=== PATIENT | male | born 1995 | race Caucasian/White ===

== ENCOUNTER 2017-10-02 12:52 | Emergency (ER) | payer OTHER ==
[2017-10-02 13:01] VITALS: BP 147/98
[2017-10-02] MEDS ORDERED: OXYCODONE-ACETAMINOPHEN 5-325 MG TABLET PO ONE (13:55)
[2017-10-02] MEDS ORDERED: CLINDAMYCIN HCL 150 MG CAPSULE PO ONE (13:55)
[2017-10-02] MEDS ORDERED: IBUPROFEN 800 MG TABLET PO ONE (13:55)
--- NOTE | 2017-10-02 14:08 | ER Document Report ---
HPI - HPI Patient complains to provider of: Lip infection Onset: Other - 4 days Onset/Duration: Worse Quality of pain: Sharp Pain Level: 5 Context: Patient complains of having a pimple along the lower lip margin. Patient states that he attempted to squeeze this area several times. Patient complains of increased pain, swelling. Patient denies any fever. Patient denies any history of MRSA. Associated Symptoms: Other - Lower lip infection. denies: Fever Exacerbated by: Movement Relieved by: Denies Similar symptoms previously: No Recently seen / treated by doctor: No - ROS ROS below otherwise negative: Yes Systems Reviewed and Negative: Yes All other systems reviewed and negative - CONSTITUTIONAL Constitutional: DENIES: Fever, Chills - EENT Notes: Lower lip swelling - GASTROINTESTINAL Gastrointestinal: DENIES: Nausea - DERM Notes: Lower lip swelling, tenderness Past Medical History - General Information source: Patient - Social History Smoking Status: Former Smoker Chew tobacco use (# tins/day): No Frequency of alcohol use: Occasional Drug Abuse: None Occupation: None Lives with: Spouse/Significant other Family History: Reviewed & Not Pertinent Patient has suicidal ideation: No Patient has homicidal ideation: No Neurological Medical History: Reports: Hx Migraine Renal/ Medical History: Denies: Hx Peritoneal Dialysis Musculoskeltal Medical History: Reports Other - Chronic back pain Past Surgical History: Reports: Hx Oral Surgery - wisdom teeth, Hx Orthopedic Surgery - toe surgery Vertical Provider Document - CONSTITUTIONAL Agree With Documented VS: Yes Exam Limitations: No Limitations General Appearance: WD/WN, No Apparent Distress - HEENT HEENT: Atraumatic, Normocephalic Notes: Lower lip abscess, no sublingual or submental swelling - NECK Neck: Normal Inspection, Supple. negative: Lymphadenopathy-Left, Lymphadenopathy-Right - RESPIRATORY Respiratory: Breath Sounds Normal, No Respiratory Distress O2 Sat by Pulse Oximetry: 98 - CARDIOVASCULAR Cardiovascular: Regular Rate, Regular Rhythm, No Murmur - BACK Back: Normal Inspection - MUSCULOSKELETAL/EXTREMETIES Musculoskeletal/Extremeties: MAEW - NEURO Level of Consciousness: Awake, Alert, Appropriate Motor/Sensory: No Motor Deficit - DERM Integumentary: Warm, Dry, Abscess - Developing abscess to left lower lip margin , small pustular lesion noted Course - Vital Signs Vital signs: Temp Pulse Resp BP Pulse Ox 98.4 F 101 H 20 147/98 H 98 10/02/17 12:58 10/02/17 12:58 10/02/17 12:58 10/02/17 12:58 10/02/17 12:58 Procedures - Incision and Drainage Left Face Type: Simple I&D procedure: Other - alcohol Incision Method: Incision made with needle Amount/type of drainage: scant amount of purulent/bloody drainage Discharge - Discharge Clinical Impression: Lip abscess, Encounter for incision and drainage procedure Condition: Stable Disposition: HOME, SELF-CARE Instructions: Abscess ([facility]), Clindamycin ([facility]), Oral Narcotic Medication ([facility]) , Post Incision and Drainage Additional Instructions: Return immediately for any new or worsening symptoms Followup with your primary care provider, call tomorrow to make a followup appointment Prescriptions: Clindamycin HCl [Cleocin Hcl] 300 mg PO QID #28 capsule Oxycodone HCl/Acetaminophen [Percocet 5-325 mg Tablet] 1 tab PO ASDIR PRN #15 tablet PRN Reason: Referrals: [facility] [Provider Group] - Follow up tomorrow
== END 2017-10-02 14:39 | disposition home or self-care (01) ==
LOC: EDBD → ER 12:52
DX: K13.0 Diseases of lips (principal); Z87.891 Personal history of nicotine dependence
CPT/HCPCS: 87070; 87077; 87186; 87205; 99283

== ENCOUNTER 2018-04-22 04:02 | Emergency (ER) | payer OTHER ==
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
[2018-04-22 04:20] LABS: ABSOLUTE LYMPHOCYTES (AUTO) 0.9 10^3/uL (0.5-4.7); ABSOLUTE MONOCYTES (AUTO) 0.6 10^3/uL (0.1-1.4); ABSOLUTE NEUT (AUTO) 7.3 10^3/uL (1.7-8.2); BASOPHILS % (AUTO) 0.3 % (0-2); EOSINOPHILS % (AUTO) 0.1 % (0-6); HEMATOCRIT 42.3 % (37.9-51.0); HEMOGLOBIN 14.6 g/dL (13.5-17.0); LYMPHOCYTES % (AUTO) 9.8 % (13-45); MEAN CORPUSCULAR HEMOGLOBIN 30.5 pg (27.0-33.4); MEAN CORPUSCULAR HGB CONC 34.6 g/dL (32.0-36.0); MEAN CORPUSCULAR VOLUME 88 fl (80-97); MONOCYTES % (AUTO) 6.6 % (3-13); PLATELET COUNT 223 10^3/uL (150-450); RED BLOOD COUNT 4.79 10^6/uL (4.35-5.55); RED CELL DISTRIBUTION WIDTH 12.7 % (11.5-14.0); SEGMENTED NEUTROPHILS % (AUTO) 83.2 % (42-78); TOTAL CELLS COUNTED % (AUTO) 100 %; WHITE BLOOD COUNT 8.8 10^3/uL (4.0-10.5)
--- NOTE | 2018-04-22 04:32 | RADIOLOGY REPORT (SQ) ---
EXAM DESCRIPTION: CT LUMBAR SPINE WITHOUT IV CONTRAST COMPLETED DATE/TME: 04/22/2018 04:11 CLINICAL HISTORY: 23 years, Male, low back pain COMPARISON: None. TECHNIQUE: Axial CT images of the lumbar spine obtained without contrast. Sagittal and coronal reformats were performed. DLP 470 Images stored on PACS. All CT scanners at this facility use dose modulation, iterative reconstruction, and/or weight based dosing when appropriate to reduce radiation dose to as low as reasonably achievable (ALARA). [facility]: Dose Right [facility]: CareDose [facility]: Dose Right [facility]: Teradose 4D [facility]: youwho LIMITATIONS: None. FINDINGS: The alignment of the lumbar spine is satisfactory. There is no acute fracture or subluxation. The vertebral heights are maintained. There are chronic bilateral L5 pars defects without significant anterolisthesis. There is a mild diffuse disc bulge at L5-S1. The spinal canal and neural foramen appear widely patent. The visualized portions of the kidneys appear unremarkable. There is no hydronephrosis. The abdominal aorta is normal in caliber. IMPRESSION: No acute fracture or subluxation. Bilateral chronic L5 pars defects without significant anterolisthesis. TECHNICAL DOCUMENTATION: Quality ID # 436: Final reports with documentation of one or more dose reduction techniques (e.g., Automated exposure control, adjustment of the mA and/or kV according to patient size, use of iterative reconstruction technique) 2010 [employer]- All Rights Reserved
[2018-04-22 04:50] LABS: ALCOHOL 114 mg/dL (NONE DETECTED); ANION GAP 19 (5-19); BLOOD UREA NITROGEN 7 mg/dL (7-20); CALCIUM 9.4 mg/dL (8.4-10.2); CARBON DIOXIDE 15 mmol/L (22-30); CHLORIDE 106 mmol/L (98-107); GLUCOSE 121 mg/dL (75-110); POTASSIUM 3.8 mmol/L (3.6-5.0); SODIUM 139.5 mmol/L (137-145)
[2018-04-22] MEDS ORDERED: DEXAMETHASONE SOD PHOS INJ 10 MG/1 ML VIAL IV ONE (05:57)
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
[2018-04-22 13:14] VITALS: BP 146/87
== END 2018-04-22 13:05 | disposition home or self-care (01) ==
LOC: ER 04:02
DX: Z04.1 Encounter for examination and observation following transport accident (principal); F10.120 Alcohol abuse with intoxication, uncomplicated; R20.0 Anesthesia of skin; R53.1 Weakness; M47.9 Spondylosis, unspecified; M54.5 Low back pain; R20.2 Paresthesia of skin; Z87.828 Personal history of other (healed) physical injury and trauma
CPT/HCPCS: 99284; 96374; 36415; 80307; 85025; 80048; 72146; 72148; 70450; 72125; 72131; L0172; J1100

== ENCOUNTER 2019-06-22 10:46 | Emergency (ER) | payer OTHER ==
[2019-06-22 10:50] VITALS: BP 128/68
[2019-06-22] MEDS ORDERED: KETOROLAC TROMETHAMINE 60 MG/2 ML SDV IM ONE (10:56)
[2019-06-22] MEDS ORDERED: DEXAMETHASONE SOD PHOS INJ 10 MG/1 ML VIAL IM ONE (10:56)
[2019-06-22] MEDS ORDERED: DEXAMETHASONE SOD PHOS INJ 10 MG/1 ML VIAL IV ONE (10:57)
[2019-06-22] MEDS ORDERED: KETOROLAC TROMETHAMINE INJ/PF 30 MG/1 ML SDV IV ONE (10:57)
[2019-06-22] MEDS ORDERED: NORMAL SALINE 1000 ML 1,000 ML IV ONE ×2 (10:57→12:19)
--- NOTE | 2019-06-22 11:01 | ER Document Report ---
ED ENT - General Chief Complaint: Sore Throat Stated Complaint: SORE THROAT Time Seen by Provider: 06/22/19 10:52 Primary Care Provider: CROW,JAZMIN [Primary Care Provider] - Follow up as needed ERASTO CISSE MD [ACTIVE STAFF] - Follow up tomorrow Mode of Arrival: Ambulatory Information source: Patient Notes: 24-year-old male presented to ED for complaint of very sore throat with decreased voice. He states it is hard to open his mouth very wide due to the pain. He has been sick for 3 to 4 days. Patient states he has had tonsillitis multiple times in the past as well as ear problems. TRAVEL OUTSIDE OF THE [place] IN LAST 30 DAYS: No - HPI Patient complains to provider of: Ear problem, Nose problem, Throat problem Onset: Other Onset/Duration: Gradual - 3 days Quality of pain: Sharp, Stabbing Severity: Moderate Pain Level: 4 Context: Recent Illness Location of pain: Nose, Sinus, Throat Associated symptoms: Sore throat Similar symptoms previously: Yes Recently seen / treated by doctor: No - Related Data Allergies/Adverse Reactions: No Known Allergies Allergy (Verified 06/22/19 10:54) Past Medical History - General Information source: Parent - Social History Smoking Status: Never Smoker Frequency of alcohol use: Occasional Drug Abuse: None Lives with: Family Family History: Reviewed & Not Pertinent Patient has suicidal ideation: No Patient has homicidal ideation: No - Past Medical History Cardiac Medical History: Reports: None Pulmonary Medical History: Reports: None EENT Medical History: Reports: Ears Neurological Medical History: Reports: Hx Migraine Endocrine Medical History: Reports: None Renal/ Medical History: Reports: None Malignancy Medical History: Reports None GI Medical History: Reports: None Musculoskeletal Medical History: Reports None Skin Medical History: Reports None Psychiatric Medical History: Reports: Hx Attention Deficit Hyperactivity Disorder Traumatic Medical History: Reports: None Infectious Medical History: Reports: None Past Surgical History: Reports: Hx Oral Surgery - wisdom teeth, Hx Orthopedic Surgery - toe surgery - Immunizations Immunizations up to date: Yes Review of Systems - Review of Systems Constitutional: Fever, Recent illness EENT: Ear pain, Nose discharge, Sinus pressure, Sinus discharge, Throat pain, Mouth pain Cardiovascular: No symptoms reported Respiratory: No symptoms reported Gastrointestinal: No symptoms reported Genitourinary: No symptoms reported Male Genitourinary: No symptoms reported Musculoskeletal: No symptoms reported Skin: No symptoms reported Hematologic/Lymphatic: No symptoms reported Neurological/Psychological: No symptoms reported -: Yes All other systems reviewed and negative Physical Exam - Vital signs Vitals: Temp Pulse Resp BP Pulse Ox 102.7 F H 115 H 22 H 128/68 H 95 06/22/19 10:49 06/22/19 10:49 06/22/19 10:49 06/22/19 10:49 06/22/19 10:49 Interpretation: Normal - General General appearance: Appears well, Alert - HEENT Head: Normocephalic, Atraumatic Eyes: Normal Pupils: PERRL Ears: Normal External canal: Normal Tympanic membrane: Normal Sinus: Normal Nasal: Purulent discharge, Swelling Mouth/Lips: Normal Mucous membranes: Normal Pharynx: Erythema, Exudate, Post nasal drainage, Tonsillar hypertrophy Neck: Normal - Respiratory Respiratory status: No respiratory distress Chest status: Nontender Breath sounds: Normal Chest palpation: Normal - Cardiovascular Rhythm: Regular Heart sounds: Normal auscultation Murmur: No - Abdominal Inspection: Normal Distension: No distension Bowel sounds: Normal Tenderness: Nontender Organomegaly: No organomegaly - Back Back: Normal, Nontender - Extremities General upper extremity: Normal inspection, Nontender, Normal color, Normal ROM, Normal temperature General lower extremity: Normal inspection, Nontender, Normal color, Normal ROM, Normal temperature, Normal weight bearing. No: Juan Francisco's sign - Neurological Neuro grossly intact: Yes Cognition: Normal Orientation: AAOx4 [place] Coma Scale Eye Opening: Spontaneous [place] Coma Scale Verbal: Oriented Rafiq Coma Scale Motor: Obeys Commands [place] Coma Scale Total: 15 Speech: Normal Motor strength normal: LUE, RUE, LLE, RLE Sensory: Normal - Psychological Associated symptoms: Normal affect, Normal mood - Skin Skin Temperature: Warm Skin Moisture: Dry Skin Color: Normal Course - Re-evaluation Re-evalutation: 06/22/19 19:53 Patient was treated with Toradol Decadron and IV fluids. He was able to speak freely drink water before being discharged. Patient strep and mono were negative. Patient was instructed to follow-up with primary care and/or ENT for his sore throat and fever. - Vital Signs Vital signs: Temp Pulse Resp BP Pulse Ox 98.7 F 99 14 128/68 H 96 06/22/19 13:32 06/22/19 13:32 06/22/19 13:32 06/22/19 10:49 06/22/19 13:32 - Laboratory Result Diagrams: 06/22/19 11:38 06/22/19 11:38 Laboratory results interpreted by me: 06/22/19 11:38 WBC 16.7 H Lymph % (Auto) 5.8 L Absolute Neuts (auto) 13.9 H Absolute Monos (auto) 1.8 H Seg Neutrophils % 83.0 H Discharge - Discharge Clinical Impression: Viral tonsillitis URI (upper respiratory infection) Qualifiers: URI type: unspecified viral URI Qualified Code(s): J06.9 - Acute upper respiratory infection, unspecified Condition: Stable Disposition: HOME, SELF-CARE Additional Instructions: UPPER RESPIRATORY ILLNESS: You have a viral infection of the respiratory passages -- a "cold." This common infection causes nasal congestion, drainage, and often sore throat and cough. It is highly contagious. The disease usually lasts about 10 to 14 days. There is no "cure" for the viral infection -- it must run its course. If there is a complication, such as bacterial infection in the nose, sinuses, middle ear, or bronchial tubes, antibiotics may be required. The antibiotics won't affect the virus. Drink plenty of fluids. A humidifier may help. An expectorant medication or decongestant may make you more comfortable. Use acetaminophen or ibuprofen for fever or aches. See the doctor if fever persists over two days, if there is any significant worsening of your symptoms, or if you simply fail to improve as expected. Tonsillitis Tonsillitis is infection of the tonsils. Symptoms include sore throat, difficulty swallowing, fever and aches, and tender lumps under the angle of the jaw. Tonsillitis can be caused by bacteria or viruses. Viral tonsillitis must get better on its own. Antibiotics don't help. The doctor may test for mononucleosis if symptoms last many days. We can only treat the symptoms. Bacterial tonsillitis is treated with antibiotics. It may take a few days before improvement occurs. It's important to take all the antibiotics. Take acetaminophen or ibuprofen for pain and fever. Sip frequent clear liquids, or use popsicles or ice chips. Anesthetic sprays or lozenges may help a little (the pain of tonsillitis is deep, and isn't helped much by numbing the surface). Make sure the air in the room is not too dry. Avoid using decongestants or antihistamines. Tonsillectomy may be necessary if you have several episodes of tonsillitis within a couple of years, or if there are complications from your tonsillitis. It's usually not needed. Call the doctor if there is no improvement in two days, or if you have difficulty breathing, increasing throat pain, high fever, rash, or frequent vomiting. USE OF ACETAMINOPHEN (Tylenol): Acetaminophen may be taken for pain relief or fever control. It's much safer than aspirin, offering a wider range of "safe" dosages. It is safe during . Some brand names are Tylenol, Panadol, Datril, Anacin 3, Tempra, and Liquiprin. Acetaminophen can be repeated every four hours. The following are maximum recommended dosages: >89 pounds or adults 650 mg to 900 mg Acetaminophen can be repeated every four hours. Maximum dose not to exceed 4000 mg a day. Ibuprofen Ibuprofen is an excellent, safe drug for pain control. In addition, it has potent antiinflammatory effects which are beneficial, especially in the treatment of injuries, arthritis, or tendonitis. It's best to take ibuprofen with food. Persons with ulcer disease or allergy to aspirin should notify their physician of this before taking ibuprofen. Take the medication exactly as prescribed. Don't take additional doses unless instructed to do so by your doctor. If you develop wheezing, shortness of breath, hives, faintness, stomach pain, vomiting, or dark black stools, return for re-evaluation at once. Salt and soda solution 1 quart of water 1 tablespoon of salt 1 teaspoon of baking soda Mixed 3 ingredients together and boil for 1 minute Placed in a covered quart jar Use 1/2 ounce of cold solution to gargle 3 times a day Chloraseptic spray for your sore throat FOLLOW-UP CARE: If you have been referred to a physician for follow-up care, call the physicians office for an appointment as you were instructed or within the next two days. If you experience worsening or a significant change in your symptoms, notify the physician immediately or return to the Emergency Department at any t dimitris for re-evaluation. Forms: Elevated Blood Pressure, Return to Work [facility]errals: [facility] [[facility]] - Follow up as needed ERASTO CISSE MD [ACTIVE STAFF] - Follow up tomorrow
[2019-06-22 11:54] LABS: ABSOLUTE MONOCYTES (AUTO) 1.8 10^3/uL (0.1-1.4); ABSOLUTE NEUT (AUTO) 13.9 10^3/uL (1.7-8.2); BASOPHILS % (AUTO) 0.1 % (0-2); EOSINOPHILS % (AUTO) 0.1 % (0-6); HEMATOCRIT 40.5 % (37.9-51.0); HEMOGLOBIN 14.1 g/dL (13.5-17.0); LYMPHOCYTES % (AUTO) 5.8 % (13-45); MEAN CORPUSCULAR HEMOGLOBIN 30.8 pg (27.0-33.4); MEAN CORPUSCULAR HGB CONC 34.7 g/dL (32.0-36.0); MEAN CORPUSCULAR VOLUME 89 fl (80-97); PLATELET COUNT 171 10^3/uL (150-450); RED BLOOD COUNT 4.57 10^6/uL (4.35-5.55); RED CELL DISTRIBUTION WIDTH 12.5 % (11.5-14.0); TOTAL CELLS COUNTED % (AUTO) 100 %; WHITE BLOOD COUNT 16.7 10^3/uL (4.0-10.5)
[2019-06-22 12:15] LABS: ALBUMIN 4.4 g/dL (3.5-5.0); ALKALINE PHOSPHATASE 70 U/L (38-126); ANION GAP 11 (5-19); ASPARTATE AMINO TRANSFERASE 17 U/L (17-59); BILIRUBIN,DIRECT 0.1 mg/dL (0.0-0.4); BILIRUBIN,TOTAL 1.1 mg/dL (0.2-1.3); BLOOD UREA NITROGEN 11 mg/dL (7-20); CALCIUM 9.3 mg/dL (8.4-10.2); CARBON DIOXIDE 27 mmol/L (22-30); CHLORIDE 100 mmol/L (98-107); GLUCOSE 102 mg/dL (75-110); POTASSIUM 4.2 mmol/L (3.6-5.0); TOTAL PROTEIN 7.4 g/dL (6.3-8.2)
== END 2019-06-22 13:32 | disposition home or self-care (01) ==
LOC: ER 10:46
DX: J03.80 Acute tonsillitis due to other specified organisms (principal); B97.89 Other viral agents as the cause of diseases classified elsewhere; H92.09 Otalgia, unspecified ear; R09.89 Other specified symptoms and signs involving the circulatory and respiratory systems; K13.79 Other lesions of oral mucosa
CPT/HCPCS: 99283; 96372; 96360; 36415; 87070; 87880; 85025; 86308; 80053; J1885; J7030; J1100

== ENCOUNTER 2019-06-27 11:32 | Observation (INO) | payer OTHER ==
[2019-06-27] MEDS ORDERED: KETOROLAC TROMETHAMINE INJ/PF 30 MG/1 ML SDV IV ONE (12:13)
[2019-06-27] MEDS ORDERED: DEXAMETHASONE SOD PHOS INJ 10 MG/1 ML VIAL IV ONE ×2 (12:13→16:42)
[2019-06-27] MEDS ORDERED: NORMAL SALINE 1000 ML 1,000 ML IV ONE (12:14)
[2019-06-27 13:13] LABS: ALKALINE PHOSPHATASE 89 U/L (38-126); ANION GAP 10 (5-19); ASPARTATE AMINO TRANSFERASE 14 U/L (17-59); BILIRUBIN,DIRECT 0.3 mg/dL (0.0-0.4); BILIRUBIN,TOTAL 1.2 mg/dL (0.2-1.3); BLOOD UREA NITROGEN 12 mg/dL (7-20); CALCIUM 9.4 mg/dL (8.4-10.2); CARBON DIOXIDE 30 mmol/L (22-30); CHLORIDE 101 mmol/L (98-107); GLUCOSE 106 mg/dL (75-110); POTASSIUM 4.1 mmol/L (3.6-5.0); TOTAL PROTEIN 7.2 g/dL (6.3-8.2)
[2019-06-27 13:25] LABS: HEMOGLOBIN 13.5 g/dL (13.5-17.0); MEAN CORPUSCULAR HEMOGLOBIN 30.5 pg (27.0-33.4); MEAN CORPUSCULAR HGB CONC 34.5 g/dL (32.0-36.0); MEAN CORPUSCULAR VOLUME 89 fl (80-97); PLATELET COUNT 256 10^3/uL (150-450); RED BLOOD COUNT 4.41 10^6/uL (4.35-5.55); RED CELL DISTRIBUTION WIDTH 12.7 % (11.5-14.0); WHITE BLOOD COUNT 20.9 10^3/uL (4.0-10.5)
[2019-06-27 13:49] LABS: ABSOLUTE LYMPHOCYTES# (MANUAL) 2.3 10^3/uL (0.5-4.7); ABSOLUTE MONOCYTES # (MANUAL) 1.9 10^3/uL (0.1-1.4); BAND NEUTROPHILS % (MANUAL) 1 % (3-5); BASOPHILS % (MANUAL) 0 % (0-2); EOSINOPHILS % (MANUAL) 0 % (0-6); LYMPHOCYTES % (MANUAL) 11 % (13-45); MONOCYTES % (MANUAL) 9 % (3-13); SEGMENTED NEUTROPHILS % (MAN) 79 % (42-78); TOTAL CELLS COUNTED 100
[2019-06-27 13:51] LABS: PLATELET COMMENT ADEQUATE; RBC MORPHOLOGY COMMENT NORMO-CYTIC/CHROMIC
--- NOTE | 2019-06-27 14:50 | RADIOLOGY REPORT (SQ) ---
EXAM DESCRIPTION: CT SOFT TISSUE NECK WITH COMPLETED DATE/TIME: 06/27/2019 2:17 pm REASON FOR STUDY: rule out peritonsillar abscess COMPARISON: None. TECHNIQUE: Post IV contrasted scanning from skull base through lung apices with review of bone, soft tissue and lung windows. Reconstructed coronal and sagittal MPR images reviewed. All images stored on PACS. All CT scanners at this facility use dose modulation, iterative reconstruction, and/or weight based d osing when appropriate to reduce radiation dose to as low as reasonably achievable (ALARA). [facility]: Dose Right [facility]: CareDose [facility]: Dose Right [facility]: Teradose 4D [facility]: Panvidea CONTRAST TYPE AND DOSE: 75 ccmL Omnipaque 350 RENAL FUNCTION: None required. The patient is less than 50 years old. RADIATION DOSE: CT Rad equipment meets quality standard of care and radiation dose reduction techniq ues were employed. CTDIvol: 14.1 mGy. DLP: 480 mGy-cm. mGy. LIMITATIONS: Streak artifact from the dental amalgam limits evaluation at the level of the mandible. FINDINGS: SKULL BASE: Intact. MAJOR SALIVARY GLANDS: No solid or cystic masses. No inflammatory changes. LYMPHADENOPATHY: There is a bilateral enlarged cervical level 2 lymph nodes. For reference there is a left level 2 node measuring 17 mm in short axis (series 3, image 46). MUCOSAL MASSES OR ASYMMETRY: There is asymmetric enlargement and soft tissue fullness within the left palatini tonsil. There is a 19 x 14 mm intermediate-attenuation ill-defined collection within the l eft palatini tonsil (series 3, image 36). No well-formed peritonsillar abscess. There is mass effec t with narrowing of the posterior nasopharyngeal airway. LARYNX/CORDS: No abnormal findings. VASCULAR STRUCTURES: The major vessels are patent. LUNG APICES: Clear. BONES: Intact. THYROID: Normal size. No masses. PARANASAL SINUSES: Clear. OTHER: No other significant finding. IMPRESSION: 1. Asymmetric enlargement of the left palatini tonsil with a 19 x 14 mm intermediate-at tenuation ill-defined collection suggestive of developing tonsillar abscess. There is associated sig nificant narrowing of the nasopharyngeal airway. 2. Cervical lymphadenopathy, likely reactive. Findings discussed with Kris at 1444 hours on 06/27/2019 TECHNICAL DOCUMENTATION: JOB ID: [id number] RS [id number]: Final reports with documentation of one or more dose reduction techniques (e.g., Automate d exposure control, adjustment of the mA and/or kV according to patient size, use of iterative recons truction technique) 2010 [employer]- All Rights Reserved Reading location - IP/workstation name: [email or web address]
[2019-06-27] MEDS ORDERED: PIPERACILLIN/TAZOBACTAM 3.375 GM VIAL IV ONE (14:54)
--- NOTE | 2019-06-27 15:07 | ER Document Report ---
ED Medical Screen (RME) - General Chief Complaint: Sore Throat Stated Complaint: WEAKNESS Time Seen by Provider: 06/27/19 12:07 Primary Care Provider: JAZMIN MARIA [Primary Care Provider] - Follow up as needed Notes: Patient is a 24-year-old male who presents emergency department with a chief complaint of fever and sore throat. Patient states he was seen here on Sunday and diagnosed with a viral tonsillitis. Patient reports he was given medications while he was here in the emergency department and did feel better a few days afterwards. Patient reports a temp of 102 at home and continued sore throat. Patient reports it feels like the sore throat is worse on the right. TRAVEL OUTSIDE OF THE [place] IN LAST 30 DAYS: No - Related Data Allergies/Adverse Reactions: adhesive tape Allergy (Verified 06/27/19 13:26) Past Medical History - Social History Chew tobacco use (# tins/day): No Frequency of alcohol use: Social Drug Abuse: None Neurological Medical History: Reports: Hx Migraine Renal/ Medical History: Denies: Hx Peritoneal Dialysis Psychiatric Medical History: Reports: Hx Attention Deficit Hyperactivity Disorder Past Surgical History: Reports: Hx Oral Surgery - wisdom teeth, Hx Orthopedic Surgery - toe surgery - Immunizations Immunizations up to date: Yes Physical Exam - Vital signs Vitals: Temp Pulse BP Pulse Ox 101.1 F H 114 H 138/82 H 98 06/27/19 11:39 06/27/19 11:39 06/27/19 11:39 06/27/19 11:39 - HEENT Notes: Patient does have palpable bilateral cervical lymph nodes. Patient does have +4 tonsillar enlargement although it does appear to be slightly worse on the left, uvula is midline. Patient has a hot potato voice. No drooling. Course - Re-evaluation Re-evalutation: 06/27/19 15:05 We will obtain basic labs, repeat strep and mono. Will give IV fluids, stero ids, anti-inflammatories to help with the pain and swelling. We will continue to monitor. Order a CT to rule out peritonsillar abscess. I have greeted and performed a rapid initial assessment of this patient. A comprehensive ED assessment and evaluation of the patient, analysis of test results and completion of the medical decision making process will be conducted by additional ED providers. Radiology called to report a possible developing peritonsillar abscess on the left side. I did discuss this with Dr. Fritz, will initiate IV Zosyn. I did reevaluate the patient she was resting comfortably. Patient reports his symptoms are slightly better. Patient is not tachycardic or febrile at this time. Patient to be evaluated by a provider in the back. - Vital Signs Vital signs: Temp Pulse Resp BP Pulse Ox 98.8 F 93 18 115/67 97 06/27/19 14:57 06/27/19 14:57 06/27/19 14:57 06/27/19 14:57 06/27/19 14:57 - Laboratory Result Diagrams: 06/27/19 13:02 06/27/19 12:11 Laboratory results interpreted by me: 06/27/19 06/27/19 12:11 13:02 WBC 20.9 H Seg Neuts % (Manual) 79 H Band Neutrophils % 1 L Lymphocytes % (Manual) 11 L Abs Neuts (Manual) 16.7 H Abs Monocytes (Manual) 1.9 H AST 14 L Doctor's Discharge - Discharge [facility]errals: [facility] [[facility]] - Follow up as needed
[2019-06-27] MEDS ORDERED: CLINDAMYCIN 600 MG/D5W RTU 600 MG/50 ML RTUPB IV ONE (15:18)
--- NOTE | 2019-06-27 15:34 | ER Document Report ---
ED General - General Chief Complaint: Sore Throat Stated Complaint: WEAKNESS Time Seen by Provider: 06/27/19 12:07 Primary Care Provider: JAZMIN MARIA [Primary Care Provider] - Follow up as needed TRAVEL OUTSIDE OF THE [place] IN LAST 30 DAYS: No - HPI Notes: Patient is a 24-year-old male no significant past medical history who presents complaining of worsening sore throat over the past 5 days, trouble swallowing, trouble speaking, fevers. Patient was diagnosed with a viral tonsillitis 5 days ago, but has had worsening symptoms since then. Patient states that it is worse on the left than the right. He does have some trouble swallowing, but is not drooling. He is still able to urinate normally and have normal bowel movements. No other concerns or complaints. Denies any headache, neck pain, URI, chest pain, palpitations, syncope, cough, shortness of breath, wheeze, dyspnea, abdominal pain, nausea/vomiting/diarrhea, urinary retention, dysuria, hematuria, or rash. - Related Data Allergies/Adverse Reactions: adhesive tape Allergy (Verified 06/27/19 13:26) Past Medical History - Social History Smoking Status: Never Smoker Chew tobacco use (# tins/day): No Frequency of alcohol use: Social Drug Abuse: None Family History: Reviewed & Not Pertinent Patient has suicidal ideation: No Patient has homicidal ideation: No Neurological Medical History: Reports: Hx Migraine Renal/ Medical History: Denies: Hx Peritoneal Dialysis Psychiatric Medical History: Reports: Hx Attention Deficit Hyperactivity Disorder Past Surgical History: Reports: Hx Oral Surgery - wisdom teeth, Hx Orthopedic Surgery - toe surgery - Immunizations Immunizations up to date: Yes Review of Systems - Review of Systems -: Yes All other systems reviewed and negative Physical Exam - Vital signs Vitals: Temp Pulse BP Pulse Ox 101.1 F H 114 H 138/82 H 98 06/27/19 11:39 06/27/19 11:39 06/27/19 11:39 06/27/19 11:39 - Notes Notes: PHYSICAL EXAMINATION: GENERAL: Well-appearing, well-nourished and in no acute resp distress. HEAD: Atraumatic, normocephalic. EYES: Pupils equal round and reactive to light, extraocular movements intact, sclera anicteric, conjunctiva are normal. ENT: Nares patent and with clear discharge. oropharynx mild erythema without exudates. 4+ tonsilar hypertrophy Left side with erythema present. + left palatine shift. Uvula deviation noted to the right. No tongue protrusion. Moist mucous membranes. + significant hoarseness w/o active drooling. Pt cannot really even say his name at this time. + moderate airway compromise noted due to swelling. NECK: Normal range of motion, supple without lymphadenopathy. No rigidity/meningismus. LUNGS: Breath sounds clear to auscultation bilaterally and equal. No wheezes rales or rhonchi. No retractions HEART: Regular rate and rhythm without murmurs, rubs, gallops. ABDOMEN: Soft, nontender, nondistended abdomen. No guarding, no rebound. Normal bowel sounds present. No CVA tenderness bilaterally. No hepatos plenomegaly. NEUROLOGICAL: Normal speech, normal gait. PSYCH: Normal mood, normal affect. SKIN: Warm, Dry, normal turgor, no rashes or lesions noted. Course - Re-evaluation Re-evalutation: 06/27/19 15:37 Patient is a 24-year-old male who presents with fever, leukocytosis of 20,000, left peritonsillar abscess with significant nasopharyngeal airway narrowing which was also noted on exam. Pt given decadron IV as well as toradol and fluids. Fever has improved. Clindamycin ordered. Neg mono/strep. I did notify Dr. Fritz and updated him on case as there is airway compromise present and if any deterioration, may need intubated. I left a voice mail for transfer to [facility]. [facility] do not [facility] these cases. Pt will be placed on monitor. He has IV access. 06/27/19 15:59 Left another voice mail for [place]. We will try [facility]. 06/27/19 16:03 Spoke with transfer center who will have Dr. Brown ENT, call me back. 06/27/19 16:09 [facility] called me back and want to wait for [facility] response then call them back if we need. 06/27/19 16:37 I spoke in depth with KAIA Eldridge, from [facility]. He looked at the CT imaging and does not believe there to be an abscess nor anything drainable. He believes that it is possibly a phlegmon. He states that this would be a medical admission and may not even need ENT if given decadron/antibiotics IV for the next 1-2 days. He does recommend continuing with clindamycin IV/PO transition or even Unasyn/Augmentin transition. He does recommend a loading dose of Decadron 24mg IV (we will add 14 to the 10 already given IV) and then 8mg every 6 hours thereafter. He does not note any significant airway compromise to the main airway, just the tonsilar area. Pt is otherwise without stridor or any distress with respirations. I did speak with our hospitalist, BENJAMIN Tipton, who will accept admission at our facility at this time. Pt is in agreement with this plan and is aware that with worsening symptoms, he may need to be transferred. - Vital Signs Vital signs: Temp Pulse Resp BP Pulse Ox 98.6 F 93 18 115/67 94 06/27/19 15:20 06/27/19 14:57 06/27/19 14:57 06/27/19 14:57 06/27/19 16:21 - Laboratory Result Diagrams: 06/27/19 13:02 06/27/19 12:11 Laboratory results interpreted by me: 06/27/19 06/27/19 12:11 13:02 WBC 20.9 H Seg Neuts % (Manual) 79 H Band Neutrophils % 1 L Lymphocytes % (Manual) 11 L Abs Neuts (Manual) 16.7 H Abs Monocytes (Manual) 1.9 H AST 14 L Discharge - Discharge Clinical Impression: Cellulitis of tonsil Fever Qualifiers: Fever type: due to other condition Qualified Code(s): R50.81 - Fever presenting with conditions classified elsewhere Condition: Stable Disposition: ADMITTED INPATIENT Admitting Provider: Asael (Hospitalist) - for BENJAMIN Tipton Unit Admitted: Medical Floor [facility]: [facility] [[facility] - Follow up as needed
[2019-06-27] MEDS ORDERED: MAG HYDROX/AL HYDROX/SIMETH SUSP 30 ML UDCUP PO PRN (17:35)
[2019-06-27] MEDS ORDERED: ONDANSETRON HCL INJ/PF 4 MG/2 ML SDV IV PRN (17:35)
[2019-06-27] MEDS ORDERED: ALBUTEROL SULFATE 0.083% NEB 2.5 MG/3 ML AMPUL NEB PRN (17:35)
[2019-06-27] MEDS ORDERED: PROMETHAZINE HCL INJ 25 MG/1 ML VIAL IV PRN (17:35)
[2019-06-27] MEDS ORDERED: KETOROLAC TROMETHAMINE INJ/PF 30 MG/1 ML SDV IV PRN (17:48)
[2019-06-27] MEDS ORDERED: ACETAMINOPHEN SOLN 325 MG/10.15 ML UDCUP PO PRN (17:48)
--- NOTE | 2019-06-27 17:48 | PDOC H&P ---
History of Present Illness Admission Date/PCP: 06/27/19 17:15 [facility] History of Present Illness: BRITTA SINGER JR is a 24 year old male without significant past medical history who presented to the emergency department today with a complaint of 5 days of gradually worsening sore throat, trouble swallowing, speaking, and fevers. Patient was seen in the emergency department 5 days ago and diagnosed with viral tonsillitis; discharged home with supportive therapy recommended. He returns today with no improvement in his symptoms. He is now unable to swallow thin liquids as it " comes out my nose," but is able to tolerate thickened liquids. Evaluation in the emergency department revealed fever (101.1), tachycardia (heart rate 114), leukocytosis (WBCs 20.9), normal chemistry, negative mono and rapid strep. Soft tissue neck CT demonstrated asymmetric enlargement of the left Palatino tonsil with a 19 x 14 mm tonsillar abscess with associated narrowing of the nasopharynx. He also has likely reactive cervical lymphadenopathy. The ED provider spoke with Dr. Brown, [facility], who recommended medical admission with IV antibiotics and Decadron for the next 24 to 48 hours. He recommended clindamycin IV to p.o. transition. He does not feel that there is any surgical or ENT needed at this time. The patient has been provided IV fluids, decadron, and IV clindamycin. He is referred to the hospitalist services for admission and management of the above stated complaints. Past Medical History Cardiac Medical History: Reports: None Pulmonary Medical History: Reports: None EENT Medical History: Reports: None Neurological Medical History: Reports: Migraine Endocrine Medical History: Reports: None Renal/ Medical History: Reports: None Malignancy Medical History: Reports: None GI Medical History: Reports: None Musculoskeltal Medical History: Reports: None Psychiatric Medical History: Reports: Attention Deficit Hyperactivity Disorder Traumatic Medical History: Reports: None Hematology: Reports: None Infectious Medical History: Reports: None Past Surgical History Past Surgical History: Reports: Orthopedic Surgery - toe surgery Social History Information Source: Patient, Relative Lives with: Family Smoking Status: Never Smoker Electronic Cigarette use?: No Frequency of Alcohol Use: Occasional Hx Recreational Drug Use: No Drugs: None Hx Prescription Drug Abuse: No - Advance Directive Resuscitation Status: Full Code Family History Family History: Reviewed & Not Pertinent Parental Family History Reviewed: Yes Children Family History Reviewed: NA Sibling(s) Family History Reviewed.: Yes Medication/Allergy Allergies/Adverse Reactions: adhesive tape Allergy (Verified 06/27/19 13:26) Review of Systems Constitutional: PRESENT: anorexia, fever(s). ABSENT: chills, headache(s), weight gain, weight loss Eyes: ABSENT: visual disturbances Ears: PRESENT: other - left ear pain. ABSENT: hearing changes Nose, Mouth, and Throat: PRESENT: as per HPI, sore throat Cardiovascular: ABSENT: chest pain, dyspnea on exertion, edema, orthropnea, palpitations Respiratory: ABSENT: cough, hemoptysis Gastrointestinal: ABSENT: abdominal pain, constipation, diarrhea, hematemesis, hematochezia, nausea, vomiting Genitourinary: ABSENT: dysuria, hematuria Musculoskeletal: ABSENT: joint swelling Integumentary: ABSENT: rash, wounds Neurological: ABSENT: abnormal gait, abnormal speech, confusion, dizziness, focal weakness, syncope Psychiatric: ABSENT: anxiety, depression, homidical ideation, suicidal ideation Endocrine: ABSENT: cold intolerance, heat intolerance, polydipsia, polyuria Hematologic/Lymphatic: ABSENT: easy bleeding, easy bruising Physical Exam Vital Signs: Temp Pulse Resp BP Pulse Ox 98.7 F 91 17 126/84 H 94 06/27/19 17:11 06/27/19 17:11 06/27/19 17:11 06/27/19 17:11 06/27/19 17:11 Intake & Output 06/26/19 06/27/19 06/28/19 06:59 06:59 06:59 Intake Total 1050 Balance 1050 Weight 75.1 kg General appearance: PRESENT: no acute distress, cooperative, disheveled, well- developed, well-nourished Head exam: PRESENT: atraumatic, normocephalic Eye exam: PRESENT: conjunctiva pink, EOMI, PERRLA. ABSENT: scleral icterus Ear exam: PRESENT: normal external ear exam Mouth exam: PRESENT: moist, tongue midline, other - left facial swelling; Left cervical lymphadenopathy Neck exam: PRESENT: full ROM, lymphadenopathy. ABSENT: carotid bruit, JVD, thyromegaly, tracheal deviation Respiratory exam: PRESENT: clear to auscultation yessi, symmetrical, unlabored. ABSENT: rales, rhonchi, wheezes Cardiovascular exam: PRESENT: RRR, +S1, +S2. ABSENT: diastolic murmur, rubs, systolic murmur Pulses: PRESENT: normal dorsalis pedis pul Vascular exam: PRESENT: normal capillary refill GI/Abdominal exam: PRESENT: normal bowel sounds, soft. ABSENT: distended, guarding, mass, organolmegaly, rebound, tenderness Rectal exam: PRESENT: deferred Extremities exam: PRESENT: full ROM. ABSENT: calf tenderness, clubbing, pedal edema Neurological exam: PRESENT: alert, awake, oriented to person, oriented to place, oriented to time, oriented to situation, CN II-XII grossly intact. ABSENT: motor sensory deficit Psychiatric exam: PRESENT: appropriate affect, normal mood. ABSENT: homicidal ideation, suicidal ideation Skin exam: PRESENT: dry, intact, warm. ABSENT: cyanosis, rash Results Laboratory Results: 06/27/19 13:02 06/27/19 12:11 06/27/19 06/27/19 12:11 13:02 WBC 20.9 H RBC 4.41 Hgb 13.5 Hct 39.0 MCV 89 MCH 30.5 MCHC 34.5 RDW 12.7 Plt Count 256 Seg Neutrophils % Not Reportable Sodium 141.2 Potassium 4.1 Chloride 101 Carbon Dioxide 30 Anion Gap 10 BUN 12 Creatinine 0.77 Est GFR ( Amer) > 60 Glucose 106 Calcium 9.4 Total Bilirubin 1.2 AST 14 L Alkaline Phosphatase 89 Total Protein 7.2 Albumin 4.0 Impressions: Soft Tissue Neck CT 06/27/19 12:14 IMPRESSION: 1. Asymmetric enlargement of the left palatini tonsil with a 19 x 14 mm intermediate-attenuation ill-defined collection suggestive of developing tonsillar abscess. There is associated significant narrowing of the nasopharyngeal airway. 2. Cervical lymphadenopathy, likely reactive. Findings discussed with Kris at 1444 hours on 06/27/2019 Assessment and Plan - Diagnosis (1) Cellulitis of tonsil Is this a current diagnosis for this admission?: Yes Plan: Admit to the medical floor. Continue IV clindamycin. Decadron 8 mg every 8 hours. Continue IV fluids. Follow-up CBC. Blood cultures pending. Outpatient ENT follow-up. (2) Leukocytosis Is this a current diagnosis for this admission?: Yes Plan: Secondary #1. Cultures and antibiotics as above. (3) Dysphagia Qualifiers: Dysphagia type: oral phase Qualified Code(s): R13.11 - Dysphagia, oral phase Is this a current diagnosis for this admission?: Yes Plan: Secondary to 1. Full liquid, nectar thickened liquids diet. Aspiration precautions. Remaining management as above. (4) Fever Qualifiers: Fever type: due to other condition Qualified Code(s): R50.81 - Fever presenting with conditions classified elsewhere Is this a current diagnosis for this admission?: Yes Plan: Secondary to #1. Antipyretics as needed. - Time Time Spent with patient: 35 or more minutes Medications reviewed and adjusted accordingly: Yes Anticipated discharge: Home Within: within 48 hours - Inpatient Certification Based on my medical assessment, after consideration of the patient's comorbidities, presenting symptoms, or acuity I expect that the services needed warrant INPATIENT care.: Yes I certify that my determination is in accordance with my understanding of Medicare's requirements for reasonable and necessary INPATIENT services [42 CFR 412.3e].: Yes Medical Necessity: Failure to Improve With Outpatient Therapy, Need For IV Fluids, Need for IV Antibiotics
[2019-06-27] MEDS ORDERED: DEXAMETHASONE SOD PHOS INJ 10 MG/1 ML VIAL IV SCH (18:00)
[2019-06-27] MEDS: NORMAL SALINE 1000 ML 1,000 ML IV PRN (22:22)
[2019-06-27] MEDS: FAMOTIDINE INJ/PF 20 MG/2 ML SDV IV SCH (22:23)
[2019-06-27] MEDS: CLINDAMYCIN 600 MG/D5W RTU 600 MG/50 ML RTUPB IV SCH (22:23)
[2019-06-27] MEDS: HEPARIN SOD (PORCINE) 5,000 UNIT/ML 1 ML VIAL SUBCUT SCH (22:23)
[2019-06-27] MEDS ORDERED: INFLUENZA QUAD (6MOS+) 2019-20 VAC 0.5 ML SYR IM ONE (22:58)
[2019-06-28] MEDS: CLINDAMYCIN 600 MG/D5W RTU 600 MG/50 ML RTUPB IV SCH ×2 (05:22→13:55)
[2019-06-28] MEDS: DEXAMETHASONE SOD PHOS INJ 10 MG/1 ML VIAL IV SCH ×2 (05:22→11:43)
[2019-06-28] MEDS: HEPARIN SOD (PORCINE) 5,000 UNIT/ML 1 ML VIAL SUBCUT SCH ×2 (05:22→13:54)
[2019-06-28 05:34] LABS: HEMATOCRIT 35.5 % (37.9-51.0); HEMOGLOBIN 12.5 g/dL (13.5-17.0); MEAN CORPUSCULAR HEMOGLOBIN 30.8 pg (27.0-33.4); MEAN CORPUSCULAR HGB CONC 35.2 g/dL (32.0-36.0); MEAN CORPUSCULAR VOLUME 87 fl (80-97); PLATELET COUNT 246 10^3/uL (150-450); RED BLOOD COUNT 4.06 10^6/uL (4.35-5.55); RED CELL DISTRIBUTION WIDTH 12.5 % (11.5-14.0); WHITE BLOOD COUNT 16.5 10^3/uL (4.0-10.5)
[2019-06-28 06:10] LABS: ANION GAP 11 (5-19); BLOOD UREA NITROGEN 15 mg/dL (7-20); CALCIUM 9.1 mg/dL (8.4-10.2); CARBON DIOXIDE 26 mmol/L (22-30); CHLORIDE 104 mmol/L (98-107); GLUCOSE 145 mg/dL (75-110); POTASSIUM 4.1 mmol/L (3.6-5.0)
[2019-06-28] MEDS: NORMAL SALINE 1000 ML 1,000 ML IV PRN (09:09)
[2019-06-28] MEDS: FAMOTIDINE INJ/PF 20 MG/2 ML SDV IV SCH (09:09)
[2019-06-28] MEDS ORDERED: ACETAMINOPHEN 325 MG TABLET PO PRN (09:38)
[2019-06-28] MEDS ORDERED: DOCUSATE SODIUM 100 MG/10 ML UDC PO SCH (10:00)
[2019-06-28 15:27] VITALS: BP 115/80
--- NOTE | 2019-06-28 16:00 | PDOC DISCHARGE SUMMARY ---
Impression - Admit/DC Date/PCP Admission Date/Primary Care Provider: 06/27/19 17:15 [place] [facility] Discharge Date: 06/28/19 - Discharge Diagnosis (1) Cellulitis of tonsil Is this a current diagnosis for this admission?: Yes (2) Leukocytosis Is this a current diagnosis for this admission?: Yes (3) Dysphagia Is this a current diagnosis for this admission?: Yes (4) Fever Is this a current diagnosis for this admission?: Yes - Additional Information Resuscitation Status: Full Code Discharge Diet: Regular Discharge Activity: Activity As Tolerated, Balance Activity w/Rest Referrals: [facility] [Primary Care Provider] - 07/02/19 2:00 pm Prescriptions: Clindamycin HCl [Cleocin 300 mg Capsule] 300 mg PO Q6 #40 capsule Prednisone [Deltasone 20 mg Tablet] 20 mg PO ASDIR PRN 20 Days #30 tablet PRN Reason: Hydrocodone/Acetaminophen [[place] 5-325 Tablet] 1 each PO Q4HP PRN #12 tablet PRN Reason: Ondansetron [Zofran Odt 4 mg Tablet] 1 - 2 tab PO Q4HP PRN #20 tab.rapdis PRN Reason: For Nausea/Vomiting Home Medications: Acetaminophen [Tylenol 325 mg Tablet] 650 mg PO Q4HP PRN tablet 06/28/19 Clindamycin HCl [Cleocin 300 mg Capsule] 300 mg PO Q6 #40 capsule 06/28/19 Hydrocodone/Acetaminophen [[place] 5-325 Tablet] 1 each PO Q4HP PRN #12 tablet 06/28/19 Ondansetron [Zofran Odt 4 mg Tablet] 1 - 2 tab PO Q4HP PRN #20 tab.rapdis 06/28/19 Prednisone [Deltasone 20 mg Tablet] 20 mg PO ASDIR PRN 20 Days #30 tablet 06/28/19 History of Present Illiness History of Present Illness: BRITTA SINGER JR is a 24 year old male without significant past medical history who presented to the emergency department today with a complaint of 5 days of gradually worsening sore throat, trouble swallowing, speaking, and fevers. Patient was seen in the emergency department 5 days ago and diagnosed with viral tonsillitis; discharged home with supportive therapy recommended. He returns t maris with no improvement in his symptoms. He is now unable to swallow thin liquids as it " comes out my nose," but is able to tolerate thickened liquids. Evaluation in the emergency department revealed fever (101.1), tachycardia (heart rate 114), leukocytosis (WBCs 20.9), normal chemistry, negative mono and rapid strep. Soft tissue neck CT demonstrated asymmetric enlargement of the left Palatino tonsil with a 19 x 14 mm tonsillar abscess with associated narrowing of the nasopharynx. He also has likely reactive cervical lymphadenopathy. The ED provider spoke with [facility], who recommended medical admission with IV antibiotics and Decadron for the next 24 to 48 hours. He recommended clindamycin IV to p.o. transition. He does not feel that there is any surgical or ENT needed at this time. The patient has been provided IV fluids, decadron, and IV clindamycin. He is referred to the hospitalist services for admission and management of the above stated complaints. Hospital Course Hospital Course: The patient was admitted to the medical floor and provided generous IV fluids. He was started on IV Decadron and IV clindamycin per ENTs recommendations. He was initially provided a full liquid diet which he tolerated well. He experienced rapid improvement with no additional fevers, resolution of his tachycardia, significant decrease in tonsillar, peritonsillar, and facial edema. The following morning, the patient was able to speak and eat without difficulty. He was advanced to a soft diet which he tolerated well. He is now requesting to be discharged home. Patient was discharged home in stable condition. He was provided prescriptions for p.o. clindamycin, prednisone taper, PRN Zofran, and as needed hydrocodone. He is advised to follow-up with his primary care provider within 1 week and with ear nose and throat doctor following completion of antibody course and upon receiving [facility]. Is instructed to eat as tolerated and drink plenty fluids. He is encouraged to return to emergency department as needed for concerning symptoms. Physical Exam Vital Signs: Temp Pulse Resp BP Pulse Ox 98.3 F 94 17 115/80 97 06/28/19 15:25 06/28/19 15:25 06/28/19 15:25 06/28/19 15:25 06/28/19 15:25 Intake & Output 06/27/19 06/28/19 06/29/19 06:59 06:59 06:59 Intake Total 2660 100 Balance 2660 100 Weight 74 kg General appearance: PRESENT: no acute distress, well-developed, well-nourished Head exam: PRESENT: atraumatic, normocephalic Eye exam: PRESENT: conjunctiva pink, EOMI, PERRLA. ABSENT: scleral icterus Ear exam: PRESENT: normal external ear exam Mouth exam: PRESENT: moist, tongue midline, other - slight left facial swelling; significantly improved Throat exam: PRESENT: tonsillar exudate - left, tonsillogmegaly - left Neck exam: ABSENT: carotid bruit, JVD, lymphadenopathy, thyromegaly Respiratory exam: PRESENT: clear to auscultation yessi, symmetrical, unlabored. ABSENT: rales, rhonchi, wheezes Cardiovascular exam: PRESENT: RRR. ABSENT: diastolic murmur, rubs, systolic murmur Pulses: PRESENT: normal dorsalis pedis pul Vascular exam: PRESENT: normal capillary refill GI/Abdominal exam: PRESENT: normal bowel sounds, soft. ABSENT: distended, guarding, mass, organolmegaly, rebound, tenderness Rectal exam: PRESENT: deferred Extremities exam: PRESENT: full ROM. ABSENT: calf tenderness, clubbing, pedal edema Neurological exam: PRESENT: alert, awake, oriented to person, oriented to place, oriented to time, oriented to situation, CN II-XII grossly intact. ABSENT: motor sensory deficit Psychiatric exam: PRESENT: appropriate affect, normal mood. ABSENT: homicidal ideation, suicidal ideation Skin exam: PRESENT: dry, intact, warm. ABSENT: cyanosis, rash Results Laboratory Results: WBC 16.5 10^3/uL (4.0-10.5) H 06/28/19 05:15 RBC 4.06 10^6/uL (4.35-5.55) L 06/28/19 05:15 Hgb 12.5 g/dL (13.5-17.0) L 06/28/19 05:15 Hct 35.5 % (37.9-51.0) L 06/28/19 05:15 MCV 87 fl (80-97) 06/28/19 05:15 MCH 30.8 pg (27.0-33.4) 06/28/19 05:15 MCHC 35.2 g/dL (32.0-36.0) 06/28/19 05:15 RDW 12.5 % (11.5-14.0) 06/28/19 05:15 Plt Count 246 10^3/uL (150-450) 06/28/19 05:15 Lymph % (Auto) Not Reportable 06/27/19 13:02 [place] % (Auto) Not Reportable 06/27/19 13:02 Eos % (Auto) Not Reportable 06/27/19 13:02 Baso % (Auto) Not Reportable 06/27/19 13:02 Absolute Neuts (auto) Not Reportable 06/27/19 13:02 Absolute Lymphs (auto) Not Reportable 06/27/19 13:02 Absolute Monos (auto) Not Reportable 06/27/19 13:02 Absolute Eos (auto) Not Reportable 06/27/19 13:02 Absolute Basos (auto) Not Reportable 06/27/19 13:02 Total Counted 100 06/27/19 13:02 Seg Neutrophils % Not Reportable 06/27/19 13:02 Seg Neuts % (Manual) 79 % (42-78) H 06/27/19 13:02 Band Neutrophils % 1 % (3-5) L 06/27/19 13:02 Lymphocytes % (Manual) 11 % (13-45) L 06/27/19 13:02 Monocytes % (Manual) 9 % (3-13) 06/27/19 13:02 Eosinophils % (Manual) 0 % (0-6) 06/27/19 13:02 Basophils % (Manual) 0 % (0-2) 06/27/19 13:02 Abs Neuts (Manual) 16.7 10^3/uL (1.7-8.2) H 06/27/19 13:02 Abs Lymphs (Manual) 2.3 10^3/uL (0.5-4.7) 06/27/19 13:02 Abs Monocytes (Manual) 1.9 10^3/uL (0.1-1.4) H 06/27/19 13:02 Absolute Eos (Manual) 0.0 10^3/uL (0.0-0.6) 06/27/19 13:02 Abs Basophils (Manual) 0.0 10^3/uL (0.0-0.2) 06/27/19 13:02 Platelet Comment ADEQUATE 06/27/19 13:02 RBC Morph Comment NORMO-CYTIC/CHROMIC 06/27/19 13:02 Sodium 141.3 mmol/L (137-145) 06/28/19 05:15 Potassium 4.1 mmol/L (3.6-5.0) 06/28/19 05:15 Chloride 104 mmol/L (98-107) 06/28/19 05:15 Carbon Dioxide 26 mmol/L (22-30) 06/28/19 05:15 Anion Gap 11 (5-19) 06/28/19 05:15 BUN 15 mg/dL (7-20) 06/28/19 05:15 Creatinine 0.72 mg/dL (0.52-1.25) 06/28/19 05:15 Est GFR ( Amer) > 60 (>60) 06/28/19 05:15 Est GFR (MDRD) Non-Af > 60 (>60) 06/28/19 05:15 Glucose 145 mg/dL (75-110) H 06/28/19 05:15 Lactic Acid (Sepsis) 2.4 mmol/L (0.7-2.1) H 06/27/19 19:01 Calcium 9.1 mg/dL (8.4-10.2) 06/28/19 05:15 Total Bilirubin 1.2 mg/dL (0.2-1.3) 06/27/19 12:11 Direct Bilirubin 0.3 mg/dL (0.0-0.4) 06/27/19 12:11 Neonat Total Bilirubin Not Reportable 06/27/19 12:11 Neonat Direct Bilirubin Not Reportable 06/27/19 12:11 Neonat Indirect Bili Not Reportable 06/27/19 12:11 AST 14 U/L (17-59) L 06/27/19 12:11 ALT 18 U/L (<50) 06/27/19 12:11 Alkaline Phosphatase 89 U/L (38-126) 06/27/19 12:11 Total Protein 7.2 g/dL (6.3-8.2) 06/27/19 12:11 Albumin 4.0 g/dL (3.5-5.0) 06/27/19 12:11 Monotest NEGATIVE (NEGATIVE) 06/27/19 12:11 Group A Strep Rapid NEGATIVE (NEGATIVE) 06/27/19 12:11 Impressions: Soft Tissue Neck CT 06/27/19 12:14 IMPRESSION: 1. Asymmetric enlargement of the left palatini tonsil with a 19 x 14 mm intermediate-attenuation ill-defined collection suggestive of developing tonsillar abscess. There is associated significant narrowing of the nasopharyngeal airway. 2. Cervical lymphadenopathy, likely reactive. Findings discussed with Kris at 1444 hours on 06/27/2019 Plan Plan of Treatment: The patient is discharged home in stable condition. He is advised to follow-up with his primary care provider within 1 week. He is instructed to follow-up with an ENT provider. Will require referral from the [place] clinic. He is instructed to complete his full course of antibiotic and steroid therapy. Eat as tolerated, drink plenty fluids. He is encouraged to return to the emergency department as needed for concerning symptoms. Time Spent: Greater than 30 Minutes Stroke Is this a Stroke Patient?: No Acute Heart Failure - Is this a Heart Failure Patient?: No
== END 2019-06-28 15:58 | disposition home or self-care (01) ==
LOC: ER 11:32 → INTOOBSV 17:15 → EH 17:15 → 4N 21:45
PROVIDERS: ADMIT Internal Medicine; ATTEND Internal Medicine
DX: J36 Peritonsillar abscess (principal); D72.829 Elevated white blood cell count, unspecified; R13.11 Dysphagia, oral phase; R50.81 Fever presenting with conditions classified elsewhere; R00.0 Tachycardia, unspecified; H92.02 Otalgia, left ear; R59.1 Generalized enlarged lymph nodes; Z23 Encounter for immunization
CPT/HCPCS: 96376; 99284; 96361; 96375; 96365; 36415 ×2; 87040; 87070; 87880; 85025; 85027; 86308; 80048; 80053; 83605; 70491; 90686; G0378 ×3; J1885 ×2; J7030 ×2; S0028 ×2; J1100 ×2

== ENCOUNTER 2019-09-01 08:55 | Day surgery (SDC) | payer OTHER ==
[~2019-09-01 08:55] MED LIST: DEXAMETHASONE SOD PHOS INJ 10 MG/1 ML VIAL ONE; FAMOTIDINE INJ/PF 20 MG/2 ML SDV IV ONE; FENTANYL CITRATE INJ/PF 100 MCG/2 ML AMPUL ONE; GLYCOPYRROLATE INJ 0.4 MG/2 ML VIAL ONE; LIDOCAINE 2% INJ-PF (100 MG/5 ML) SYRINGE ONE; MIDAZOLAM 2 MG/2 ML INJ ONE; ONDANSETRON HCL INJ/PF 4 MG/2 ML SDV ONE; PROPOFOL INJ 200 MG/20 ML VIAL IV ONE; SUCCINYLCHOLINE CHLORIDE INJ 200 MG/10 ML VIAL ONE
[2019-09-01] MEDS ORDERED: BUPIVACAINE HCL 0.5%/EPI 1:200000 INJ 1.8 ML CARTRIDGE ONE (11:11)
[2019-09-01] MEDS ORDERED: PROMETHAZINE HCL INJ 25 MG/1 ML VIAL ONE (13:19)
[2019-09-01] MEDS ORDERED: FENTANYL CITRATE INJ/PF 100 MCG/2 ML AMPUL ONE (13:52)
--- NOTE | 2019-09-21 10:42 | Operative Report ---
Operative Report-[facility] Operative Report: DATE OF OPERATION: September 01, 2019 PREOPERATIVE DIAGNOSIS: 1. Adenotonsillar hypertrophy 2. Acute recurrent tonsillitis 3. Tobacco abuse 4. UARS/upper airway resistance syndrome symptoms 5. TMJ/D, temporomandibular joint/dysfunction POSTOPERATIVE DIAGNOSIS: 1. Adenotonsillar hypertrophy 2. Acute recurrent tonsillitis 3. Tobacco abuse 4. UARS/upper airway resistance syndrome symptoms 5. TMJ/D, temporomandibular joint/dysfunction PROCEDURE: 1. Bilateral tonsillectomy patient age greater than 12 2. Adenoidectomy/adenoid surgery Primary Surgeon of Record: Dr. Fer Ledbetter HEAD SUGAR REPROCESS OPERATOR: None Anesthesia Staff: TITI Ferrera ANESTHESIA: General Endotracheal Tube Anesthesia DRAINS: None SPONGE COUNT: Verified Needle Count: N/A SPECIMEN/MATERIALS FORWARD TO THE LAB: 1. Left and Right Tonsillar Tissue ESTIMATED BLOOD LOSS: 15 mL IV FLUIDS: 900 mL COMPLICATIONS: None Findings: 1. The tonsils were 3+ in size, were highly cryptic in nature, were very friable bilateral and breaking apart on each side during the dissection process, and with increased bilateral scar tissue. 2. Adenoid hypertrophy was greater than 2+. 3. The soft palatal tissues were redundant in nature and the uvula was unremarkable in appearance. INDICATIONS: This is a 24-year-old white male patient who was seen and evaluated in the [facility] office. The patient had been referred for and the patient shared a history of severe recurrent tonsillitis episode requiring care through the [facility] emergency room, IV medication management and CT imaging also obtained. Patient with history of difficult acute recurrent tonsillitis, findings consistent with adenotonsillar hypertrophy. After extensive discussion with the patient the recommendation and plan was to proceed with a tonsillectomy, and adenoidectomy/adenoid surgery. The procedure and all of the risks and complications were all discussed in detail with the patient. He voiced an understanding of the described surgical plan, were in agreement, and consent was obtained. DESCRIPTION OF OPERATIVE PROCEDURE: The patient was taken to the main operating room and was placed on the operating room table in the supine position. Appropriate monitors were placed. Using mask and IV access general anesthesia was induced. The patient was next transorally intubated without difficulty. The table was then rotated 90 and the patient was positioned and prepped for tonsil and adenoid surgery. The lips, teeth, tongue, and gums were inspected and noted to be without defect. The patient had a mouth gag inserted. It was opened and the patient was placed into suspension. There was a soft catheter passed through the nose that was used to suspend the soft palate. Findings are as noted above. At this point the adenoid microdebrider system at a setting of 1500 RPM was used to debulk the adenoid tissue. Next, with use of adenoid packs and suction electrocautery adequate hemostasis was achieved. The plasma J-hook device was used to dissect and remove the tonsils from the tonsillar fossae without difficulty. This was also used to provide adequate hemostasis. Normal saline irrigation was performed and was suctioned. Adequate hemostasis was noted. The soft catheter was released and removed from the patients nose. The patient was next released from suspension and the mouth gag was closed. It was opened again and there was again no bleeding noted. It was then removed from the patient's mouth without difficulty. There was no damage to the lips, teeth, tongue, or gums noted. The patient was then returned to the anesthesia staff and was allowed to emerge from general anesthesia. The patient was extubated in the operating room and was transported to the post anesthesia recovery unit in stable condition. There were no complications.
== END 2019-09-01 15:08 | disposition home or self-care (01) ==
LOC: SC 08:55
PROVIDERS: ATTEND Otolaryngology
DX: J03.91 Acute recurrent tonsillitis, unspecified (principal); F17.210 Nicotine dependence, cigarettes, uncomplicated
CPT/HCPCS: 88304 ×2; 00170; 42821; J2250; J3490; J3010; J2001; J2550; J0330; J2405; J2704; S0028; J1100; 170

== ENCOUNTER → 2020-01-25 | Outpatient (CLI) | payer OTHER ==
--- NOTE | 2020-01-25 13:03 | RADIOLOGY REPORT (SQ) ---
EXAM DESCRIPTION: MRI RT LOWER JOINT WITHOUT IMAGES COMPLETED DATE/TIME: 01/25/2020 12:14 pm REASON FOR STUDY: M23.91 RT KNEE PAIN CONCERN FOR MENISCAL PATHOLOGY M23.91 UNSPECIFIED INTERNAL DE RANGEMENT OF RIGHT KNEE COMPARISON: None. TECHNIQUE: Non contrasted non arthrogram MRI rightknee images acquired and stored on PACS. Multipla omer images include fat sensitive sequences as T1, water sensitive sequences as FST2 or STIR, cartilag e sensitive sequences as FSPD, and gradient echo sequences. LIMITATIONS: None. FINDINGS: JOINT AND BURSAE: No effusion. BONE CORTEX AND MARROW: No alteration of signal to suggest marrow replacement. No worrisome bone lesi ons. No occult fracture. ACL: Intact PCL: Intact. MCL: Intact. No periligamentous edema or fluid. LCL: Intact. No periligamentous edema or fluid. MEDIAL MENISCUS: Small tear posterior horn medial meniscus to the inferior articular surface, best sh own on sagittal images 17-20. No parameniscal cyst. LATERAL MENISCUS: No tears. No abnormal signal. MEDIAL COMPARTMENT: Cartilage preserved. No bone bruises or reactive marrow edema. No osteophytes. LATERAL COMPARTMENT: Cartilage preserved. No bone bruises or reactive marrow edema. No osteophytes. PATELLA: No chondromalacia. No subchondral cysts. Medial and lateral retinacula intact. EXTENSOR MECHANISM: Intact. Quadriceps and patella tendons normal. SOFT TISSUES: Adjacent muscles and subcutaneous tissues normal. Normal flow void in popliteal artery and vein. OTHER: No other significant finding. IMPRESSION: Tear undersurface posterior horn medial meniscus, no parameniscal cyst TECHNICAL DOCUMENTATION: JOB ID: [id number] 2010 [employer]- All Rights Reserved Reading location - IP/workstation name: [email or web address]
== END ==
LOC: RAD 12:00
PROVIDERS: ATTEND Physician Assistant
DX: M23.91 Unspecified internal derangement of right knee (principal)